=== PATIENT | male | born 1985 | race African-American/Black ===

== ENCOUNTER 2018-10-22 17:39 | Emergency (ER) | payer OTHER ==
[2018-10-22 17:45] VITALS: BP 155/89
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
== END 2018-10-22 18:20 | disposition home or self-care (01) ==
DX: S16.1XXA Strain of muscle, fascia and tendon at neck level, initial encounter (principal); V49.49XA Driver injured in collision with other motor vehicles in traffic accident, initial encounter; Y92.410 Unspecified street and highway as the place of occurrence of the external cause

== ENCOUNTER 2018-10-26 12:53 | Emergency (ER) | payer OTHER ==
[2018-10-26 13:05] VITALS: BP 134/86
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
== END 2018-10-26 13:16 | disposition home or self-care (01) ==
DX: S16.1XXD Strain of muscle, fascia and tendon at neck level, subsequent encounter (principal)